=== PATIENT | female | born 1990 | race Two or more races ===

== ENCOUNTER 2023-10-12 20:02 | Emergency (ER) | payer MEDICAID ==
[~2023-10-12] VITALS: Ht 177.8 cm; Wt 102.0 kg
[2023-10-12 23:15] VITALS: BP 157/90; PULSE 87; RESP 16; TEMP 98.1; O2SAT 97
== END 2023-10-12 23:33 | disposition home or self-care (01) ==
LOC: ER 20:02
DX: M79.18 Myalgia, other site (principal); R51.9 Headache, unspecified; M25.512 Pain in left shoulder; Z91.040 Latex allergy status; V43.52XA Car driver injured in collision with other type car in traffic accident, initial encounter; Y93.89 Activity, other specified; Y92.89 Other specified places as the place of occurrence of the external cause; Y99.8 Other external cause status
CPT/HCPCS: 70450; 72125